=== PATIENT | female | born 1995 | race Caucasian/White ===

== ENCOUNTER → 2018-03-14 11:14 | Outpatient (CLI) | payer BC, SELFPAY ==
[2018-03-14 14:12] LABS: HCG,Quantitative 2442 mIU/mL
== END ==
PROVIDERS: Visit Provider Nurse Practitioner Obstetrics & Gynecology
DX: Z34.90 Encounter for supervision of normal pregnancy, unspecified, unspecified trimester (principal)
CPT/HCPCS: 36415; 84702

== ENCOUNTER → 2018-03-29 17:33 | Outpatient (CLI) | payer BC, SELFPAY | PROVIDERS: Visit Provider Nurse Practitioner Obstetrics & Gynecology | DX: Z34.90 Encounter for supervision of normal pregnancy, unspecified, unspecified trimester (principal) | CPT/HCPCS: 36415; 84702 ==

== ENCOUNTER → 2018-04-26 10:27 | Outpatient (CLI) | payer BC, SELFPAY ==
--- NOTE | 2018-04-26 10:32 | US_ITS ---
US OB transvaginal HISTORY: ITS.REASON: US OB Dates ORDERING PHYSICIAN: Rafa Sim MD PATIENT AGE: 22 years COMPARISON: None FINDINGS: An intrauterine gestational sac is present with a pole with a crown-rump length of 4.15cm correlating to gestational age of 11w1d. heart tones are present with an FHR of 144 bpm's. Yolk sac is noted. The amnion and chorion have not yet fused. Placenta is noted forming posteriorly Adnexa: 12 mm right corpus luteum. IMPRESSION: Live intrauterine gestation at 11 weeks 1 day as described above. Estimated due date by Ultrasound is 11/14/2018
== END ==
PROVIDERS: PCP Nurse Practitioner; Visit Provider Nurse Practitioner Obstetrics & Gynecology
DX: O26.841 Uterine size-date discrepancy, first trimester (principal)
CPT/HCPCS: 76817

== ENCOUNTER → 2018-04-26 11:52 | Outpatient (CLI) | payer BC, SELFPAY ==
[2018-04-26 12:21] LABS: Basophils # 0.1 K/mm3 (0-0.2); Basophils % 0.5 % (0.1-2.0); Eosinophils # 0.1 K/mm3 (0.0-0.4); Eosinophils % 1.2 % (0.1-12.0); Hematocrit 38.4 % (37.0-47.0); Lymphocytes # 2.6 K/mm3 (0.7-4.5); Lymphocytes % 24.4 % (10-50); Mean Corpuscular Hemoglobin 30.5 pg (27.0-31.2); Mean Corpuscular Volume 89.7 fl (81-99); Monocytes # 0.4 K/mm3 (0.1-1.0); Monocytes % 3.4 % (1.7-9.3); Neutrophils # 7.6 K/mm3 (1.8-7.8); Neutrophils % 70.7 % (37.0-80.0); Platelet Count 242 K/mm3 (142-424); Red Blood Count 4.28 M/mm3 (4.20-5.40); White Blood Count 10.7 K/mm3 (4.8-10.8)
[2018-04-27 07:15] LABS: HIV Screen 4th Generation wRfx Non Reactive (Non Reactive)
[2018-04-27 12:58] LABS: Hepatitis B Surface Antigen Negative (Negative); Hepatitis C Antibody <0.1 s/co ratio (0.0-0.9); Rapid Plasma Reagin Ab Titer Non Reactive (NonRea<1:1); Rubella Antibodies, IgG <0.90 index (Immune >0.99)
== END ==
PROVIDERS: Visit Provider Nurse Practitioner Obstetrics & Gynecology
DX: Z34.90 Encounter for supervision of normal pregnancy, unspecified, unspecified trimester (principal)
CPT/HCPCS: 36415; 85025; 86592; 86703; 86762; 86850; 87340; 87380; G0432

== ENCOUNTER → 2018-06-27 15:00 | Outpatient (CLI) | payer BC, SELFPAY ==
--- NOTE | 2018-06-27 15:01 | US_ITS ---
US OB /maternal detail: INDICATION: ITS.REASON: US OB Complete ORDERING PHYSICIAN: Rafa Sim MD PATIENT AGE: 23 years TECHNIQUE: ultrasound transabdominal scanning. COMPARISON: No previous relevant studies. FINDINGS: Single viable intrauterine gestation. Cephalic position. Placenta: Posterior placenta grade 1. Low-lying but no previa There is adequate amount fluid. rs cervix adequately long and closed 3.2 cm in length Complete survey performed and was unremarkable on the submitted images as in PACS. No discrete anomalies identified on survey imaging by technologist. Active fetus. Three-vessel cord with satisfactory umbilical cord insertion. 4- chamber heart noted. Survey of brain & ventricles. Face and neck survey unremarkable. Diaphragm and chest views unremarkable. Abdomen: Both kidneys noted and unremarkable. Stomach noted and satisfactory. Spine: Survey of the spine satisfactory with no anomalies identified nor imaged. Both arms and legs noted. Appears to be a female fetus Amniotic Fluid: Adequate. Maternal adnexa: No significant findings. Measurements: Average ultrasound age 19 weeks 2 days. Gestational Age 20 weeks 0 days. Estimated due date by ultrasound age 811/19/2018. Estimated weight 299-g +/- 44G grams. BPD = 18 weeks 6 day OFD = 20 week 1 day HC = 18 weeks 6 day AC = 20 week 1 day FL = 19 week 2 day Growth Percentile= 22% Heart Rate = 153 Cerebellum = 20 week 2 day Humerus = 19 week 5 day HC/AC is 1.09. CI is 72%. FL/BPD is 71%. FL/AC is 20%. IMPRESSION: 19 week 2 day estimated gestational age Single viable intrauterine gestation in cephalic presentation. Placenta is posterior. Low-lying but no previa. The fetus is active. Anatomy survey unremarkable WNL
== END ==
PROVIDERS: PCP Nurse Practitioner; Visit Provider Nurse Practitioner Obstetrics & Gynecology
DX: Z36.0 Encounter for antenatal screening for chromosomal anomalies (principal)
CPT/HCPCS: 76811

== ENCOUNTER 2018-10-27 14:14 | Outpatient (CLI) | payer BC, SELFPAY ==
[2018-10-27 14:22] VITALS: BMI 23.2
[2018-10-27 14:34] LABS: Microscopic, Urine URINE MICROSCOPIC (MICROSCOPIC)
[2018-10-27 14:38] LABS: Appearance,Urine CLEAR (Clear); Bilirubin,Urine Negative (Negative); Blood, Urine Negative (Negative); Color,Urine YELLOW (Yellow); Glucose,Urine (UA) Negative (Negative); Ketones,Urine Negative (Negative); Leukocyte Esterase,Urine 1+ (Negative); Nitrate,Urine Negative (Negative); PH,Urine 7.5 (5.0-8.5); Protein,Urine Negative (Negative); Urobilinogen,Urine 0.2 EU/dl (0.2)
[2018-10-27 14:44] LABS: Bacteria,Urine 1+ /lpf
[2018-10-27 14:47] LABS: Amphetamine/Metha Screen,Urine Negative ng/mL (<1000); Barbiturates Screen,Urine Negative ng/mL (<200); Benzodiazepines Screen,Urine Negative ng/mL (<200); Cannabinoid Screen,Urine Negative ng/mL (<50); Cocaine Screen,Urine Negative ng/mL (<300); Methadone Screen,Urine Negative ng/mL (<300); Opiate Screen,Urine Negative ng/mL (<300); Phencyclidine Screen,Urine Negative ng/mL (<25)
[2018-10-27 15:32] VITALS: BP 131/72; PULSE 118; RESP 18; TEMP 36.8; O2SAT 97; BMI 23.2
== END 2018-10-27 16:36 | disposition home or self-care (01) ==
LOC: OBOUT 14:16 → OB 14:17
PROVIDERS: PCP Nurse Practitioner; Referring Provider Obstetrics & Gynecology; Visit Provider Obstetrics & Gynecology
DX: O60.03 Preterm labor without delivery, third trimester (principal); Z3A.37 37 weeks gestation of pregnancy
CPT/HCPCS: 59025; 80305; 81001; 87086; 96360; 96372

== ENCOUNTER → 2019-12-17 11:17 | Outpatient (CLI) | payer BC, SELFPAY ==
[2019-12-17 11:20] LABS: Adenovirus F 40/41, stool Not Detected (NotDetected); Astrovirus Not Detected (NotDetected); Campylobacter Not Detected (NotDetected); Clostridium Difficile A/B, PCR Not Detected (NotDetected); Cryptosporidium Not Detected (NotDetected); Cyclospora Cayetanesis Not Detected (NotDetected); Entamoeba histolytica Not Detected (NotDetected); Enteroaggregative E coli Not Detected (NotDetected); Enterotoxigenic E coli Not Detected (NotDetected); Giardia lamblia Not Detected (NotDetected); Norovirus Not Detected (NotDetected); Plesimonas Shigalloides, PCR Not Detected (NotDetected); Rotavirus A Not Detected (NotDetected); Salmonella, PCR Not Detected (NotDetected); Sapovirus Not Detected (NotDetected); Shiga-like toxin E coli Not Detected (NotDetected); Shigella Enterovasive E coli Not Detected (NotDetected); Vibrio Cholerae Not Detected (NotDetected); Vibrio, PCR Not Detected (NotDetected); Yersinia Entercolitica, PCR Not Detected (NotDetected)
[2019-12-17 14:04] LABS: Enteropathogenic E coli Detected (NotDetected)
== END ==
PROVIDERS: Visit Provider Nurse Practitioner
DX: R19.7 Diarrhea, unspecified (principal); A04.0 Enteropathogenic Escherichia coli infection
CPT/HCPCS: 87507

== ENCOUNTER → 2020-04-01 15:43 | Outpatient (CLI) | payer BC, SELFPAY | PROVIDERS: PCP Nurse Practitioner; Referring Provider Nurse Practitioner; Visit Provider Nurse Practitioner | DX: Z03.818 Encounter for observation for suspected exposure to other biological agents ruled out (principal) | CPT/HCPCS: U0003 ==

== ENCOUNTER → 2020-06-29 11:35 | Outpatient (CLI) | payer BC, SELFPAY | PROVIDERS: PCP Family Medicine; Visit Provider Family Medicine | DX: Z20.822 Contact with and (suspected) exposure to COVID-19 (principal) | CPT/HCPCS: U0003 ==

== ENCOUNTER → 2021-02-11 10:00 | Outpatient (CLI) | payer BC, SELFPAY | PROVIDERS: PCP Family Medicine; Visit Provider Nurse Practitioner | DX: U07.1 COVID-19 (principal) | CPT/HCPCS: C9803; U0003; U0005 ==

== ENCOUNTER 2021-04-17 17:14 | Emergency (ER) | payer BC, SELFPAY ==
[2021-04-17 18:28] VITALS: BP 128/84; PULSE 90; RESP 14; TEMP 37.2; O2SAT 99; BMI 21.2
[2021-04-17 18:37] LABS: UTC Influenza A Antigen Negative (Negative); UTC Influenza B Antigen Negative (Negative)
--- NOTE | 2021-04-17 18:39 | HMH.EDUTC ---
[facility] [place] Clinical Impression: Viral upper respiratory illness Disposition: Home, Self-Care Condition on Discharge: Good Instructions: Sore Throat, DI for COVID-19 (Suspected or Confirmed ), Preventing the Spread of Coronavirus Discharge Instructions Additional Instructions: *Monitor Temp, Over the counter Motrin or Tylenol as directed/as needed Tylenol every 4 hours and Motrin every 6 hours (as long as your family doctor has told you that you can take it) for fever or pain. and straight to ER if unable to lower temp less than 101.0 after medication given *Warm salt water gargles may help to soothe the throat *Throat Lozenges *Warm fluids like tea with honey may help to soothe the throat *Sleep elevated *Humidifier/Vaporizer *Flonase 2 sprays in each nostril daily but be aware that it may take 2-3 days before you notice improvement *Bromfed may cause drowsiness. Know how it effects you (your child) before driving, caring for small child, or sending your child to school. Not other antihistamines/allergy medications while taking bromfed Your throat swab was sent for culture. Those results are typically sent to your primary care. Be sure to follow up in 2-3 days with your family doctor/primary care physician if no improvement so they can review those result and treat if necessary. If you don?t have a primary care doctor, I recommend you get one but in the mean time, you will have to return to a walk in clinic Follow up IMMEDIATELY for new or worsening symptoms or no Noticeable improvement over the next 48-72 hours. 911 for difficulty breathing or swallowing You were tested for today for COVID19 your test result should be back in the next 24-48 hours, you may check your results on the [facility] My Health Portal if you have trouble logging on you may call [employer] support for assistance You was given a handout with instructions for Self Quarantine and Self isolation for while you wait on test results and what to do if they are positive Make sure to take your Vitamins Vit. C Vit D and Zinc if you can take them Referrals: Khadijah Boucher APRN [Primary Care Provider] - As needed Forms: Work/School Release Medical Decision Making - Eitan Inquiry Pt receiving controlled substance: No Eitan was queried for this patient: No Vital Signs: 04/17/21 18:28 04/17/21 19:27 Temperature 98.9 F 98.9 F Temperature Source Oral Pulse Rate 90 Pulse Rate [Left] 90 Respiratory Rate 14 14 Blood Pressure 128/84 Blood Pressure [Right Arm] 128/84 Blood Pressure Mean [Right Arm] 98 02 Sat by Pulse Oximetry 99 - Lab Data Lab results reviewed: Yes: I reviewed the patient's lab results. Lab Results 04/17/21 18:22: Group A Strep Rapid Negative 04/17/21 18:32: Influenza Type A Ag Negative, Influenza Type B Ag Negative Orders (Tests/Meds): ORDERS Category Date Time Status Covid-19 Nasal PCR ([facility]) Routine Lab 04/17/21 18:22 Received Strep Screen Confirmation Stat Micro 04/17/21 18:22 Received [facility] UTC HPI - General Stated complaint: sore throat,cough,MATTSON runny nose Time Seen by Provider: 04/17/21 18:39 Mode of Arrival: Ambulatory Source of Information: Patient Limitations: No Limitations Description of Symptoms (Recalled from Triage Doc. by RN): PT C/O A FEVER, SORE THROAT, NASAL DRAINAGE, MATTSON AND COUGH. HEENT Symptoms (Recalled from RN notes): Yes (MATTSON, NASAL DRAINAGE AND SORE THROAT) Resp Symptoms (Recalled from RN notes): Yes (COUGH) Skin Symptoms (Recalled from RN notes): No MS Symptoms (Recalled from RN notes): No Functional Status (Recalled from RN notes): WNL - History of Present Illness Provider Complaint: Patient states that she has been having sore throat, headache, fever, chills body aches and cough States that it has continued to get worse over the last few days so today when infant was having similar symptoms she brought them in to get them checked out - Related Data Allergies Allergy/AdvReac Type Severity R
[2021-04-17 19:27] VITALS: BP 128/84; PULSE 90; RESP 14; TEMP 37.2
[2021-04-17 19:33] LABS: Strep Scrn Group A (Rapid) Negative (Negative)
== END 2021-04-17 19:59 | disposition home or self-care (01) ==
PROVIDERS: Emergency Provider Nurse Practitioner; PCP Nurse Practitioner Family
DX: J06.9 Acute upper respiratory infection, unspecified (principal); Z20.822 Contact with and (suspected) exposure to COVID-19
CPT/HCPCS: 87430; 87804; 99203; C9803; G0463; U0003; U0005

== ENCOUNTER → 2021-04-22 15:43 | Outpatient (CLI) | payer BC, SELFPAY | PROVIDERS: Visit Provider Nurse Practitioner | DX: Z20.822 Contact with and (suspected) exposure to COVID-19 (principal) | CPT/HCPCS: C9803; U0003; U0005 ==

== ENCOUNTER 2021-06-02 19:15 | Emergency (ER) | payer BC, SELFPAY ==
[2021-06-02 19:40] VITALS: BP 131/76; PULSE 101; RESP 18; TEMP 37; O2SAT 98; BMI 17.6
--- NOTE | 2021-06-02 20:16 | HMH.EDUTC ---
[facility] [place] Disposition Clinical Impression: Lump in female breast Disposition: Home, Self-Care Condition on Discharge: Good Instructions: Fibrocystic Breast Changes: Lumps That Are Normal, DI for Breast Mass -- Uncertain Cause Additional Instructions: Keep appointment with OBGYN on Sunday as scheduled Further treatment from OBGYN Return if needed Straight to ER if any life threatening symptoms Referrals: Khadijah Boucher APRN [Primary Care Provider] - As needed Time of Disposition: 20:23 Medical Decision Making - Eitan Inquiry Pt receiving controlled substance: No Eitan was queried for this patient: No Vital Signs: 06/02/21 19:40 Temperature 98.6 F Temperature Source Oral Pulse Rate [Right Brachial] 101 H Respiratory Rate 18 Blood Pressure [Right Arm] 131/76 Blood Pressure Mean [Right Arm] 94 Blood Pressure Source [Right Arm] Automatic Cuff Blood Pressure Position [Right Arm] Sitting 02 Sat by Pulse Oximetry 98 Oxygen Delivery Method Room Air Medical Decision Narrative: Discussed with patient no one available at this time to do ultrasound advised that we could order it and schedule it outpatient or she could see her OBGYN on Sunday and get it then and she states that she has to work so she will just get it done on Sunday if the OBGYN orders it [facility] [place] HPI - General Stated complaint: left breast swollen Time Seen by Provider: 06/02/21 20:16 Mode of Arrival: Ambulatory Source of Information: Patient Limitations: No Limitations Description of Symptoms (Recalled from Triage Doc. by RN): PATIENT C/O SWELLING AND TENDERNESS TO LEFT BREAST SINCE SUNDAY HEENT Symptoms (Recalled from RN notes): No Resp Symptoms (Recalled from RN notes): No Skin Symptoms (Recalled from RN notes): No MS Symptoms (Recalled from RN notes): No Functional Status (Recalled from RN notes): WNL - History of Present Illness Provider Complaint: Patient states that she checked her breast a couple of days ago and she felt a knot in the side of her left breast States she feels like it is swollen and she is worried about it States that she has appointment with OBGYN on Sunday but wasnt sure if she could come in and get checked so she has something to take to OB - Related Data Allergies Allergy/AdvReac Type Severity Reaction Status Date / Time No Known Allergies Allergy Verified 08/14/18 10:02 - Worker's Comp Is this a Worker's Comp case?: No [facility] History - Hepatitis A Screen Drug use history?: No High risk sexual behaviors?: No History of sexually transmitted infection?: No Currently employed?: No Childcare worker?: No Do you have indoor plumbing?: Yes Do you have electricity?: Yes Attestation statement:: This patient has been screened for Hepatitis A risk factors. I have reviewed the patient's past medical history: Yes Medical History: Reports:: Asthma Laterality Cases: Bilateral: Tonsillectomy Other Surgeries: No: Amputation: No Fractures: No - Social History Smoking Status: Current every day smoker Tobacco Type: cigarettes # Packs/Day (cigarettes): 1 Alcohol Intake: never Substance Use Type: marijuana Occupational Status: other Family Hx:: Cancer ROS Obtained: Yes All systems reviewed & no additional complaints, Yes Systems reviewed as appropriate & no additional complaints - Constitutional Constitutional: Reports system reviewed and no additional complaints, except as docu, Denies body ache, Denies chills, Denies fever(s) - ENT Ears, Nose, Mouth, and Throat: Reports system reviewed and no additional complaints, except as docu, Denies otalgia, Denies sore throat - Cardiovascular Cardiovascular: Reports system reviewed and no additional complaints, except as docu, Denies chest pain - Respiratory Respiratory: Reports system reviewed and no additional complaints, except as docu - Gastrointestinal Gastrointestingal: Reports: system reviewed and no additional complaints, except as docu - Genito
[2021-06-02 20:25] LABS: UTC Pregnancy Test, Urine Negative (Negative)
[2021-06-02 20:30] VITALS: BP 131/76; PULSE 101; RESP 18; TEMP 37; O2SAT 98
== END 2021-06-02 20:34 | disposition home or self-care (01) ==
PROVIDERS: Emergency Provider Nurse Practitioner; PCP Nurse Practitioner Family
DX: N63.25 Unspecified lump in the left breast, overlapping quadrants (principal); J45.909 Unspecified asthma, uncomplicated; F17.210 Nicotine dependence, cigarettes, uncomplicated
CPT/HCPCS: 81025; 99281; 99283

== ENCOUNTER 2021-07-11 13:23 | Emergency (ER) | payer BC, SELFPAY ==
--- NOTE | 2021-07-11 14:09 | HMH.EDUTC ---
[facility] [place] Disposition Clinical Impression: Influenza A, Bronchitis Disposition: Home, Self-Care Condition on Discharge: Good Instructions: Influenza, Acute Bronchitis, DI for Acute Bronchitis, DI for Influenza -- Adult Additional Instructions: Drink plenty of fluids. Take tylenol or ibuprofen for pain or fever. Take the medications as directed. Follow up with your regular doctor. GO TO THE ER FOR ANY WORSENING SYMPTOMS The cough medication (promethazine dm) will make you drowsy, so don't drive or operate heavy machinery after taking it. Prescriptions: Promethazine/Dextromethorphan [Promethazine-Dm Syrup] 5 ml PO Q6HP PRN #240 ml PRN Reason: Cough Transmission Status: Received by [facility] Benzonatate [Benzonatate 100mg cap] 100 mg PO TIDP PRN #30 cap PRN Reason: Cough Transmission Status: Received by [facility] Oseltamivir Phosphate [Tamiflu 75mg Capsule] 75 mg PO BID #10 cap Transmission Status: Received by [facility] Azithromycin [Z-Tono 250mg Tab*] 250 mg PO UD DOSE PK #6 tab Transmission Status: Received by [facility] Referrals: Khadijah Boucher APRN [Primary Care Provider] - Forms: Work/School Release Time of Disposition: 14:49 Medical Decision Making - Medical Records Medical records reviewed: No: I reviewed the patient's medical records. - Eitan Inquiry Pt receiving controlled substance: No Vital Signs: 07/11/21 14:28 07/11/21 15:04 Temperature 98.5 F 98.5 F Temperature Source Oral Pulse Rate 91 H Pulse Rate [Left] 91 H Respiratory Rate 19 19 Blood Pressure 114/69 Blood Pressure [Right Arm] 114/69 Blood Pressure Mean [Right Arm] 84 02 Sat by Pulse Oximetry 99 - Lab Data Lab results reviewed: Yes: I reviewed the patient's lab results. Lab Results 07/11/21 14:17: Influenza Type A Ag Negative, Influenza Type B Ag Negative [facility] [place] HPI - General Stated complaint: cough, chest congestion, runny nose Time Seen by Provider: 07/11/21 14:09 - History of Present Illness Provider Complaint: She c/o body aches, chills, cough and malaise for the past 2 days. - Related Data Previous Rx's Medication Instructions Recorded Azithromycin [Z-Tono 250mg Tab*] 250 mg PO UD DOSE PK #6 tab 07/11/21 Benzonatate [Benzonatate 100mg 100 mg PO TIDP PRN #30 cap 07/11/21 cap] Oseltamivir Phosphate [Tamiflu 75 mg PO BID #10 cap 07/11/21 75mg Capsule] Promethazine/Dextromethorphan 5 ml PO Q6HP PRN #240 ml 07/11/21 [Promethazine-Dm Syrup] Allergies Allergy/AdvReac Type Severity Reaction Status Date / Time No Known Allergies Allergy Verified 08/14/18 10:02 [facility] History - Hepatitis A Screen Attestation statement:: This patient has been screened for Hepatitis A risk factors. I have reviewed the patient's past medical history: Yes Medical History: Reports:: Asthma Laterality Cases: Bilateral: Tonsillectomy Other Surgeries: No: Amputation: No Fractures: No - Social History Smoking Status: Current every day smoker Tobacco Type: cigarettes # Packs/Day (cigarettes): 1 Alcohol Intake: never Substance Use Type: marijuana Occupational Status: other Family Hx:: Cancer ROS Obtained: Yes All systems reviewed & no additional complaints - Constitutional Constitutional: Reports as per HPI - Eyes Eyes: Denies eye discharge - ENT Ears, Nose, Mouth, and Throat: Reports as per HPI - Cardiovascular Cardiovascular: Denies chest pain - Respiratory Respiratory: Denies chest congestion, Reports cough, Denies dyspnea, Denies stridor, Denies wheezing Physical Exam - General General appearance: alert, in no apparent distress - Head Head exam: atraumatic, normocephalic, normal inspection - Eye Eye exam: Present: normal appearance, PERRL, EOMI - ENT ENT exam: Present: normal exam, normal oropharynx, mucous membranes moist, TM's normal bilaterally, normal external ear exam - Neck Ne
[2021-07-11 14:28] VITALS: BP 114/69; PULSE 91; RESP 19; TEMP 36.9; O2SAT 99; BMI 18.1
[2021-07-11 14:29] LABS: UTC Influenza A Antigen Negative (Negative); UTC Influenza B Antigen Negative (Negative)
[2021-07-11 15:04] VITALS: BP 114/69; PULSE 91; RESP 19; TEMP 36.9
== END 2021-07-11 15:05 | disposition home or self-care (01) ==
PROVIDERS: Emergency Provider Nurse Practitioner Family; PCP Nurse Practitioner Family
DX: J20.9 Acute bronchitis, unspecified (principal); F17.210 Nicotine dependence, cigarettes, uncomplicated; Z79.52 Long term (current) use of systemic steroids
CPT/HCPCS: 87804; 99213; G0463

== ENCOUNTER 2021-07-27 14:26 | Emergency (ER) | payer BC, SELFPAY ==
[2021-07-27 14:30] VITALS: BP 132/78; PULSE 91; RESP 16; TEMP 36.9; O2SAT 100; BMI 17.6
--- NOTE | 2021-07-27 14:53 | HMH.EDUTC ---
[facility] [place] Disposition Clinical Impression: Sinusitis Qualifiers: Sinusitis location: unspecified location Chronicity: unspecified Qualified Code(s): J32.9 - Chronic sinusitis, unspecified Disposition: Home, Self-Care Condition on Discharge: Good Instructions: Sinusitis, DI for Sinusitis Additional Instructions: *Monitor Temp, Over the counter Motrin or Tylenol as directed/as needed Tylenol every 4 hours and Motrin every 6 hours (as long as your family doctor has told you that you can take it) for fever or pain. and straight to ER if unable to lower temp less than 101.0 after medication given *Warm salt water gargles may help to soothe the throat *Throat Lozenges *Warm fluids like tea with honey may help to soothe the throat *Sleep elevated *Humidifier/Vaporizer Take medication as prescribed Return if needed Follow up IMMEDIATELY for new or worsening symptoms or no Noticeable improvement over the next 48-72 hours. 911 for difficulty breathing or swallowing Prescriptions: Amoxicillin/Potassium Clav [Amox-Clav 875-125 mg Tablet] 1 tab PO BID #14 tab Transmission Status: Pending to [facility] Brompheniramine/Pseudoephed/Dm [Bromfed Dm Cough Syrup] 5 - 10 ml PO Q4-6H PRN #200 ml PRN Reason: Cough Transmission Status: Pending to [facility] methylPREDNISolone [Medrol 4mg tab] 4 mg PO DIRECTED #21 tab Transmission Status: Pending to [facility] Referrals: Khadijah Boucher APRN [Primary Care Provider] - As needed Time of Disposition: 15:02 Medical Decision Making - Eitan Inquiry Pt receiving controlled substance: No Eitan was queried for this patient: No Vital Signs: 07/27/21 14:30 Temperature 98.4 F Temperature Source Oral Pulse Rate [Right Brachial] 91 H Respiratory Rate 16 Blood Pressure [Right Arm] 132/78 Blood Pressure Mean [Right Arm] 96 Blood Pressure Source [Right Arm] Automatic Cuff Blood Pressure Position [Right Arm] Sitting 02 Sat by Pulse Oximetry 100 Oxygen Delivery Method Room Air Medical Decision Narrative: discussed CXR and patient declined states that her chest congestion is better just having the pressure in her sinuses with drainage in the back of her throat worried that she may have a bad sinus infection [facility] [place] HPI - General Stated complaint: congestion Time Seen by Provider: 07/27/21 14:53 Mode of Arrival: Ambulatory Source of Information: Patient Limitations: No Limitations Description of Symptoms (Recalled from Triage Doc. by RN): PATIENT STATES SHE WAS TREATED FOR FLU AND BRONCHITIS A COUPLE OF WEEKS AGO. SHE REPORTS SHE FEELS BETTER, BUT IS CONCERNED THAT SHE IS COUGHING UP A LOT OF YELLOW/GREEN MUCOUS STILL, RUNNY NOSE, AND THAT HER HEAD FEELS FULL HEENT Symptoms (Recalled from RN notes): Yes Resp Symptoms (Recalled from RN notes): Yes Skin Symptoms (Recalled from RN notes): No MS Symptoms (Recalled from RN notes): No Functional Status (Recalled from RN notes): WNL - History of Present Illness Provider Complaint: Patient states that she was seen a couple of weeks ago and was dx with bronchitis States that she finished her antibiotics and feels like it helped with her chest congestion but not helped much with her sinuses States that she has had head fullness and pressure along with drainage in the back of her throat States that she can clear her throat and spit it out States that she thinks she has a sinus infection and the antibiotics didnt clear it up - Related Data Previous Rx's Medication Instructions Recorded Azithromycin [Z-Tono 250mg Tab*] 250 mg PO UD DOSE PK #6 tab 07/11/21 Benzonatate [Benzonatate 100mg 100 mg PO TIDP PRN #30 cap 07/11/21 cap] Oseltamivir Phosphate [Tamiflu 75 mg PO BID #10 cap 07/11/21 75mg Capsule] Promethazine/Dextromethorphan 5 ml PO Q6HP PRN #240 ml 07/11/21 [Promethazine-Dm Syrup] Amoxicillin/Potassium Clav 1 tab PO BID #14 tab 07/27/21 [Amox-Clav 875-125 mg Tablet] Brompheniramine/Ps
[2021-07-27 15:04] VITALS: BP 132/78; PULSE 91; RESP 16; TEMP 36.9; O2SAT 100
== END 2021-07-27 15:10 | disposition home or self-care (01) ==
PROVIDERS: Emergency Provider Nurse Practitioner; PCP Nurse Practitioner Family
DX: J32.9 Chronic sinusitis, unspecified (principal)
CPT/HCPCS: 99212; G0463

== ENCOUNTER 2022-01-30 14:01 | Emergency (ER) | payer BC, SELFPAY ==
[2022-01-30 16:01] VITALS: BP 140/73; PULSE 70; RESP 19; TEMP 36.8; O2SAT 99; BMI 17.5
--- NOTE | 2022-01-30 16:10 | EXP.UTC ---
Discharge Plan Disposition Patient Disposition: Home, Self-Care Condition: Good Prescriptions Prescriptions: New azithromycin [Zithromax Z-Tono] 250 mg tablet See Rx Instructions .ROUTE .COMPLEX 5 Days Qty: 6 0RF Rx Instructions: For 250 mg dose pack: take 500 mg today (day 1), then 250 mg for 4 days (days 2-5) benzonatate 100 mg capsule 100 mg PO TID PRN (Reason: cough) Qty: 30 0RF methylprednisolone [Medrol (Tono)] 4 mg tablets,dose pack See Rx Instructions .Route .COMPLEX 6 Days Qty: 21 0RF Rx Instructions: taper pack; No Action promethazine-DM 120 ML syrup 5 ml PO Q6HP PRN (Reason: Cough) Qty: 240 0RF azithromycin 250 MG tablet 250 mg PO UD DOSE PK Qty: 6 0RF Rx Instructions: Take two (2) tablets today, then one (1) tablet days #2 thru #5 benzonatate 100 MG capsule 100 mg PO TIDP PRN (Reason: Cough) Qty: 30 0RF oseltamivir 75 MG capsule 75 mg PO BID Qty: 10 0RF methylprednisolone 4 MG tablet 4 mg PO DIRECTED Qty: 21 0RF Rx Instructions: Take as directed on package instructions [id number] ML syrup 5 - 10 ml PO Q4-6H PRN (Reason: Cough) Qty: 200 0RF amoxicillin-pot clavulanate 1 EACH tablet 1 tab PO BID Qty: 14 0RF Referrals Follow up/Referrals: Zuleyma Munoz MD [Primary Care Provider] - See instructions Activity Restrictions/Add. Instructions Additional Instructions/Restrictions: *Monitor Temp, Over the counter Motrin or Tylenol as directed/as needed Tylenol every 4 hours and Motrin every 6 hours (as long as your family doctor has told you that you can take it) for fever or pain. and straight to ER if unable to lower temp less than 101.0 after medication given *Warm salt water gargles may help to soothe the throat *Throat Lozenges? *Warm fluids like tea with honey may help to soothe the throat? *Sleep elevated *Humidifier/Vaporizer Take medication as prescribed Follow up IMMEDIATELY for new or worsening symptoms or no Noticeable improvement over the next 48-72 hours. 911 for difficulty breathing or swallowing Clinical Impressions Clinical Impression: Sinusitis Instructions Patient Instructions: DI for Sinusitis, Sinusitis Discharge ED Provider: Jovita Hernández [facility] HPI General Stated complaint: Cough,runny nose, sore throat Mode of Arrival: Ambulatory Source of Information: Patient Limitations: No Limitations Time Seen by Provider: 01/30/22 16:10 Description of Symptoms (Recalled from Triage Doc. by RN): PT TO [facility] WITH COUGH, SORE THROAT AND RUNNING NOSE X A FEW WEEKS HEENT Symptoms (Recalled from RN notes): Yes (RUNNY NOSE, SORE THROAT) Resp Symptoms (Recalled from RN notes): Yes (COUGH) Skin Symptoms (Recalled from RN notes): No MS Symptoms (Recalled from RN notes): No Functional Status (Recalled from RN notes): WDL History of Present Illness Provider Complaint: Patient states that she started a couple weeks ago with runny nose cough and sore throat States that she thought it was just a virus so she has been taking OTC meds States that now she is having pain and pressure behind her eyes and tenderness like she gets with sinus infections States that today she wasnt feeling any better so she came in to get something to help Related Data Previous Rx's Medication Instructions Recorded azithromycin 250 mg tablet 250 mg PO UD DOSE PK #6 tabs 07/11/21 benzonatate 100 mg capsule 100 mg PO TIDP PRN Cough #30 caps 07/11/21 oseltamivir 75 mg capsule 75 mg PO BID #10 caps 07/11/21 promethazine-DM 6.25 mg-15 mg/5 mL 5 ml PO Q6HP PRN Cough #240 mL 07/11/21 oral syrup amoxicillin 875 mg-potassium 1 tab PO BID #14 tabs 07/27/21 clavulanate 125 mg tablet [id number] 5 - 10 ml PO Q4-6H PRN Cough #200 07/27/21 2 mg-30 mg-10 mg/5 mL oral syrup mL methylprednisolone 4 mg tablet 4 mg PO DIRECTED #21 tabs 07/27/21 azithromycin 250 mg tablet See Rx I
[2022-01-30 16:20] VITALS: BP 132/68; PULSE 65; RESP 17; TEMP 36.8; O2SAT 99
== END 2022-01-30 16:22 | disposition home or self-care (01) ==
PROVIDERS: Emergency Provider Nurse Practitioner; PCP Family Medicine
DX: J32.9 Chronic sinusitis, unspecified (principal)
CPT/HCPCS: 99212; G0463

== ENCOUNTER → 2023-03-07 13:51 | Outpatient (CLI) | payer BC, SELFPAY ==
--- NOTE | 2023-03-07 13:51 | US_ITS ---
PROCEDURE INFORMATION: Exam: US Left Breast, Complete Exam date and time: 03/07/2023 2:01 PM Age: 27 years old Clinical indication: Palpable abnormality in the left breast TECHNIQUE: Imaging protocol: Complete ultrasound of all four quadrants of the left breast and the retroareolar regions, including ultrasound of the axilla when performed. COMPARISON: No relevant prior studies available. FINDINGS: Breast: Sonographic images of the left breast including the retroareolar region, all 4 quadrants and the axilla demonstrates an ovoid uniformly hypoechoic mass in the 5 o'clock axis 4 cm from the nipple measuring 0.4 x 0.2 x 0.6 cm in dimension. The finding is probably benign in etiology. Extremely dense somewhat nodular fibroglandular structures are noted in the left 1 o'clock axis 6 cm from the nipple where the patient reports a palpable abnormality. No definite discrete mass lesion is identified although the area appears more hypoechoic than its surrounding tissue in the remainder of the upper outer quadrant as well as in other quadrants of the left breast. The area of interest measures approximately 2.5 x 0.6 cm in dimension. No architectural distortion or acoustical shadowing. No skin thickening or axillary adenopathy. IMPRESSION: A skin marker should be placed over the area of palpable concern followed by a diagnostic unilateral mammogram with spot compression views for full evaluation of the patient's complaint of a palpable abnormality. ASSESSMENT: BI-RADS Category 0: Incomplete- Need Additional Imaging Evaluation and/or Prior Mammograms for Comparison
== END ==
PROVIDERS: PCP Psychiatry & Neurology Sleep Medicine; Visit Provider Obstetrics & Gynecology
DX: N63.20 Unspecified lump in the left breast, unspecified quadrant (principal)
CPT/HCPCS: 76641

== ENCOUNTER 2023-03-27 13:56 | Outpatient (CLI) | payer BC, SELFPAY ==
--- NOTE | 2023-03-27 13:56 | MM_ITS ---
PROCEDURE INFORMATION: Exam: MG Left Diagnostic Breast Tomosynthesis Exam date and time: 03/27/2023 1:47 PM Age: 27 years old Clinical indication: Left breast; palpable abnormality TECHNIQUE: Imaging protocol: Left Diagnostic tomosynthesis and 2D mammography including computer-aided detection (CAD) when performed. Unilateral or bilateral exam. COMPARISON: 1. MG [facility] DI[facility] MAMMO W/CAD BILAT 06/07/2021 10:40 AM 2. US BREAST LT COMPLETE 03/07/2023 2:01 PM FINDINGS: MAMMOGRAPHY: The breast tissue is extremely dense, which lowers the sensitivity of mammography. There is no stellate mass, architectural distortion or suspicious microcalcifications to suggest malignancy. A skin marker was placed over an area of palpable concern in the left posterior upper outer quadrant. Routine and spot compression views demonstrate dense normal fibroglandular structures. Review of the patient's most recent sonogram dated 03/07/2023 did not demonstrate any suspicious findings. No skin thickening or axillary adenopathy. IMPRESSION: Palpable abnormality in the left breast corresponds both mammographically and sonographically to extremely dense normal fibroglandular structures. There is no mammographic evidence of malignancy. Further evaluation of a palpable abnormality should be based on clinical grounds regardless of radiographic findings or lack thereof. ASSESSMENT: BI-RADS Category 1: Negative
== END 2023-03-27 23:59 ==
LOC: RAD 13:56
PROVIDERS: PCP Psychiatry & Neurology Sleep Medicine; Visit Provider Obstetrics & Gynecology
DX: N63.20 Unspecified lump in the left breast, unspecified quadrant (principal)
CPT/HCPCS: 77061; 77065; G0279

== ENCOUNTER 2023-04-22 13:11 | Emergency (ER) | payer BC, SELFPAY ==
[2023-04-22 13:13] VITALS: BP 119/77; PULSE 75; RESP 18; TEMP 37.1; O2SAT 100; BMI 17.5
--- NOTE | 2023-04-22 13:57 | ED_ITS ---
Discharge Plan Disposition Patient Disposition: Home, Self-Care Condition: Good Prescriptions Prescriptions: New amoxicillin [amoxicillin] 500 mg tablet 500 mg PO TID 10 Days Qty: 30 0RF oseltamivir [Tamiflu] 75 mg capsule 75 mg PO BID Qty: 10 0RF [id number]-kubqsdubl-DU [Bromfed DM] 2-30-10 mg/5 mL Syrup 5 ml PO Q6H PRN (Reason: Cough) Qty: 240 0RF No Action ParaGard T 380A 380 square mm intrauterine device 1 device intrauterine ONCE norethindrone ac-eth estradiol [Loestrin 04/14 ()] 1-20 mg-mcg tablet 1 tab PO DAILY Qty: 63 0RF Referrals Follow up/Referrals: Phillip Arrieta MD [Primary Care Provider] - See instructions Activity Restrictions/Add. Instructions Additional Instructions/Restrictions: Drink plenty of fluids. Take tylenol or ibuprofen for pain or fever. Take the medications as directed. Follow up with your regular doctor. GO TO THE ER FOR ANY WORSENING SYMPTOMS Throw your tooth brush away and get a new one. Clinical Impressions Clinical Impression: Strep throat, Exposure to influenza Stand Alone Forms Stand Alone Forms: Work/School Release Instructions Patient Instructions: Strep Throat, DI for Strep Throat Discharge ED Provider: Adelso Mora [facility] [place] General Stated complaint: fever 100.6 ba schmitz runny nose cough congestion Time Seen by Provider: 04/22/23 13:57 History of Present Illness Provider Complaint: She states that for the past 2 days she has had sore throat, chills, and low grade fever. Related Data Home Medications Medication Instructions Recorded Confirmed copper 380 square mm intrauterine 1 device intrauterine ONCE 02/21/23 04/22/23 device (ParaGard T 380A) Previous Rx's Medication Instructions Recorded norethindrone acetate 1 mg-ethinyl 1 tab PO DAILY #63 tabs 02/21/23 estradiol 20 mcg tablet (Loestrin) amoxicillin 500 mg tablet 500 mg PO TID 10 days #30 tabs 04/22/23 uwwwmvowgifxtyq-aafmukhxuojiqui-YL 5 ml PO Q6H PRN Cough #240 mL 04/22/23 2 mg-30 mg-10 mg/5 mL oral syrup (Bromfed DM) oseltamivir 75 mg capsule (Tamiflu) 75 mg PO BID #10 caps 04/22/23 Allergies Allergy/AdvReac Type Severity Reaction Status Date / Time No Known Allergies Allergy Verified 04/22/23 14:08 [facility] Disclaimer: The information contained in this section may have been updated after the patient was seen, as this information can be updated by other users. Medical History Lump in female breast Surgical History No significant past surgical history Family History Grandmother Cancer maternal-breast Social History Smoking Status: Current every day smoker tobacco type: e-cigarettes alcohol intake: never substance use type: marijuana current occupational status: other Travel in the last 8 weeks: None ROS Obtained: Yes All systems reviewed & no additional complaints except as documented Constitutional Constitutional: Reports chills and Reports fever(s) Eyes Eyes: Denies eye discharge ENT Ears, Nose, Mouth, and Throat: Reports as per HPI Cardiovascular Cardiovascular: Denies chest pain Respiratory Respiratory: Denies chest congestion and Reports cough Gastrointestinal Gastrointestingal: Reports nausea; Denies abdominal pain, constipation, cramping, diarrhea or vomiting Musculoskeletal Musculoskeletal: Denies arthralgias Integumentary/Breasts Skin/Breast: Denies rash Neurologic Neurologic: Denies paresthesias Physical Exam General General appearance: alert and in no apparent distress Head Head exam: atraumatic, normocephalic and normal inspection Eye Eye exam: Present normal appearance, PERRL and EOMI ENT ENT exam: Present mucous membranes moist and normal external ear exam Expanded ENT Exam TM/Canal exam: Bilateral TM: erythema and bulging Nose exam: Absent sinus tenderness Mouth exam: Present normal external inspection; Absent drooling Teeth exam: Present normal inspection Throat exam: Present tonsillar erythema, tonsillomegaly and tonsillar exudate Neck Neck exam: Present normal inspection, full ROM and trachea midline; Absent tenderness, meningismus or lymphadenopathy Chest Chest inspection: Present normal inspection and symmetric chest wall rise; Absent tenderness Respiratory Respiratory exam: Present normal lung sounds bilaterally; Absent respiratory distress, wheezes or stridor Cardiovascular Cardiovascular exam: Present regular rate and normal rhythm; Absent systolic murmur or diastolic murmur Abdominal Exam Abdominal exam: Present soft and normal bowel sounds; Absent distention, tenderness, guarding, rebound or rigidity Extremities Exam Extremities exam: Present normal inspection and normal capillary refill; Absent calf tenderness Back Exam Back exam: Present normal inspection and full ROM; Absent tenderness, CVA tenderness (R) or CVA tenderness (L) Neurological Exam Neurological exam: Present alert, oriented X3 and CN II-XII intact Psychiatric Psychiatric exam: Present normal affect and normal mood Skin Skin exam: Present warm, dry, intact and normal color Medical Decision Making Medical Records Medical records reviewed: No I reviewed the patient's medical records. Eitan Inquiry Pt receiving controlled substance: No Lab Data Lab results reviewed: Yes I reviewed the patient's lab results.
[2023-04-22 14:17] LABS: UTC Influenza A Antigen Negative (Negative); UTC Influenza B Antigen Negative (Negative); UTC Strep Screen (Rapid) Positive (Negative)
[2023-04-22 14:32] VITALS: BP 119/77; PULSE 75; RESP 18; TEMP 37.1; O2SAT 100
== END 2023-04-22 14:32 | disposition home or self-care (01) ==
PROVIDERS: Emergency Provider Nurse Practitioner Family; PCP Family Medicine
DX: J02.0 Streptococcal pharyngitis (principal); R07.0 Pain in throat; R50.9 Fever, unspecified; F17.290 Nicotine dependence, other tobacco product, uncomplicated; Z20.828 Contact with and (suspected) exposure to other viral communicable diseases
CPT/HCPCS: 87804; 87880; 99212; 99214; G0463

== ENCOUNTER 2023-05-16 15:00 | Outpatient (CLI) | payer BC, SELFPAY ==
--- NOTE | 2023-05-16 15:04 | XR_ITS ---
FINAL REPORT TECHNIQUE: Chest PA & Lateral CLINICAL HISTORY: COVID 19 POSITIVE cough, shortness of breath COMPARISON: None FINDINGS: 2 views of the chest were performed. The heart size is normal. The mediastinum is within normal limits. There is no acute cardiopulmonary process. There are no pleural effusions. There is no pneumothorax. The bony thorax appears intact. IMPRESSION: No acute cardiopulmonary process. Reviewed, Interpreted and Dictated by Kaz Singleton MD Transcribed by Susana Kebede Authenticated and [facility]
== END 2023-05-16 23:59 ==
LOC: RAD 15:01
PROVIDERS: PCP Nurse Practitioner; Visit Provider Nurse Practitioner
DX: U07.1 COVID-19 (principal)
CPT/HCPCS: 71046

== ENCOUNTER 2023-05-21 07:06 | Outpatient (CLI) | payer BC, SELFPAY ==
--- NOTE | 2023-05-21 07:15 | US_ITS ---
FINAL REPORT TECHNIQUE: Limited ultrasound imaging of the chest was obtained. CLINICAL HISTORY: PALP AREA NOTED LEFT UPPER CHEST -- FINDINGS: There is no mass or fluid collection. No soft tissue abnormality is seen. IMPRESSION: Unremarkable exam. Reviewed, Interpreted and Dictated by Chloe Melton MD Transcribed by Jerrica Nj Authenticated and [facility]
== END 2023-05-21 23:59 ==
LOC: RAD 07:07
PROVIDERS: PCP Nurse Practitioner; Visit Provider Nurse Practitioner
DX: R22.2 Localized swelling, mass and lump, trunk (principal)
CPT/HCPCS: 76604

== ENCOUNTER 2024-11-17 16:19 | Outpatient (CLI) | payer BC, SELFPAY ==
[2024-11-17 23:02] LABS: Coronavirus 19, PCR Not Detected (NotDetected); Influenza A, PCR Not Detected (NotDetected); Influenza B, PCR Not Detected (NotDetected)
== END 2024-11-17 23:59 | disposition home or self-care (01) ==
LOC: LAB.DROPOF 11-19 11:20
PROVIDERS: PCP Nurse Practitioner; Visit Provider Nurse Practitioner
DX: J06.9 Acute upper respiratory infection, unspecified (principal)
CPT/HCPCS: 87631